=== PATIENT | male | born 1995 | race American Indian/Alaskan Native ===

== ENCOUNTER 2019-08-22 21:58 | Emergency (ER) | payer SELFPAY ==
[2019-08-22 22:32] VITALS: BP 122/76
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
[2019-08-23] MEDS ORDERED: NACL 0.9% 1000 ML 0 ML ONE (01:25)
== END 2019-08-23 01:59 | disposition left against medical advice (07) ==
LOC: ED 21:58
DX: Z00.00 Encounter for general adult medical examination without abnormal findings (principal)
CPT/HCPCS: J7030